=== PATIENT | female | born 1950 | race Caucasian/White ===

== ENCOUNTER 2016-10-10 16:25 | Observation (INO) | payer OTHER ==
[~2016-10-10] VITALS: Ht 152.4 cm; Wt 61.2 kg
[2016-10-10] MEDS ORDERED: LIPITOR40 MG PO (16:39)
[2016-10-10] MEDS ORDERED: ASPIR 8181 M1 PO (16:39)
[2016-10-10] MEDS ORDERED: COLACE100 MG PO (16:40)
[2016-10-10] MEDS ORDERED: METAMUCIL PACKE1 PKT PO (16:41)
[2016-10-10 17:17] LABS: EOSINOPHIL (%) 0.9 % (0-5); EOSINOPHIL COUNT 0.1 K/uL (0-0.3); HEMATOCRIT 40.4 % (36.0-46.0); IMMATURE GRANULOCYTE (%) 0.2 % (0.0-0.7); IMMATURE GRANULOCYTE COUNT 0.1 K/uL; MCHC 33.4 G/DL (30.0-36.0); MCV 86.9 FL (83-99); MEAN PLAT.VOLUME 9.5 uM^3 (9.5-12.4); MONOCYTE COUNT 0.5 K/uL (0-0.8); NEUTROPHIL (%) 73.2 % (45-76); NEUTROPHIL COUNT 4.3 K/uL (1.8-6.4); PLATELET COUNT 193 K/uL (156-360); RBC DIS.WIDTH-CV 12.2 % (11.8-14.6); RBC DIS.WIDTH-SD 37.9 % (39-53); RED BLOOD COUNT 4.65 M/uL (3.80-5.20); WHITE BLOOD COUNT 5.8 K/uL (4.1-10.2)
[2016-10-10 17:26] LABS: CHLORIDE 108 mEq/L (99-109); POTASSIUM 3.9 mEq/L (3.7-5.4); SODIUM 141 mEq/L (136-147)
[2016-10-10 17:29] LABS: GLUCOSE 108 mg/dL (70-99)
[2016-10-10 17:30] LABS: ANION GAP 9 MEQ/L (2-14)
[2016-10-10 17:31] LABS: D-DIMER ELISA 0.23 mg/L FEU (< 0.57); TOTAL BILIRUBIN 0.5 mg/dL (0.0-1.0)
[2016-10-10 17:32] LABS: ALKALINE PHOSPHATASE 79 IU/L (3-129); GFR ESTIMATE (CALCULATED) > 59 mL/min/
[2016-10-10 17:33] LABS: UREA NITROGEN (BUN) 11 mg/dL (9-23)
[2016-10-10 17:36] LABS: LIPASE 57 U/L (1.0-51.0)
[2016-10-10 17:37] LABS: TROP-I INTERPRETATION NEGATIVE; TROPONIN-I < 0.01 ng/mL (0.0-0.30)
[2016-10-10] MEDS ORDERED: ONE A DAY WOME EAC PO (18:26)
[2016-10-10] MEDS ORDERED: METAMUCIL POWD798 GM PO (18:26)
[2016-10-10] MEDS ORDERED: FISH OIL500 MG PO (18:27)
[2016-10-10] MEDS ORDERED: OCUVITE TABLET1 EACH PO (18:27)
[2016-10-10] MEDS ORDERED: VITAMIN D31000 UNIT PO (18:27)
[2016-10-10] MEDS ORDERED: CRANBERRY 4001 EAC1 PO (18:27)
[2016-10-10] MEDS ORDERED: TUMS ULTRA ST1177 MG PO (18:27)
[2016-10-10 20:44] LABS: MAGNESIUM 1.8 mg/dL (1.3-2.7)
[2016-10-11 00:03] LABS: TROP-I INTERPRETATION NEGATIVE; TROPONIN-I < 0.01 ng/mL (0.0-0.30)
[2016-10-11 00:46] VITALS: BP 170/102
[2016-10-11 01:21] VITALS: BP 180/97
[2016-10-11 04:13] VITALS: BP 156/81
[2016-10-11 06:29] LABS: HDL CHOLESTEROL 65 MG/DL (Desirable>=50); LDL CHOLESTEROL 72 mg/dL (Desirable<100); NON-HDL CHOLESTEROL 88 mg/dL (Desirable<160); TOTAL CHOLESTEROL 153 mg/dL (Desirable<200); TRIGLYCERIDES 78 MG/DL (Normal: <150)
[2016-10-11 06:39] LABS: TROP-I INTERPRETATION NEGATIVE; TROPONIN-I < 0.01 ng/mL (0.0-0.30)
[2016-10-11 08:12] VITALS: BP 161/83
[2016-10-11] MEDS ORDERED: AMLODIPINE BES2.5 MG PO (12:22)
[2016-10-11 12:24] VITALS: BP 141/79
== END 2016-10-11 13:37 | disposition home or self-care (01) ==
LOC: EME 16:25 → EDOF 19:16 → 5WEST 22:13
PROVIDERS: Emergency Medicine; Physician Assistant Medical
DX: R07.89 Other chest pain (principal); I10 Essential (primary) hypertension; K21.9 Gastro-esophageal reflux disease without esophagitis; R11.0 Nausea; R42 Dizziness and giddiness; E78.5 Hyperlipidemia, unspecified; Z79.82 Long term (current) use of aspirin; Z82.49 Family history of ischemic heart disease and other diseases of the circulatory system; Z83.3 Family history of diabetes mellitus; Z82.3 Family history of stroke
CPT/HCPCS: 71010; 80053; 80061; 83690; 83735; 84484; 85025; 85379; 93005; 99281; 99285; G0378; J1650; J2405